=== PATIENT | female | born 1990 | race American Indian/Alaskan Native ===

== ENCOUNTER 2020-06-11 04:40 | Emergency (ER) | payer MEDICAID ==
[2020-06-11] MEDS ORDERED: methylPREDNISolone Sod Succinate 125 MG/2 ML INJ IV ONE (04:57)
[2020-06-11] MEDS ORDERED: FAMOTIDINE 20 MG/2 ML INJ IV ONE (04:57)
[2020-06-11] MEDS ORDERED: CETIRIZINE 10 MG TAB PO ONE (04:58)
--- NOTE | 2020-06-11 05:05 | Emergency Department Report ---
ED Allergic Reaction HPI - General Chief complaint: Allergic Reaction Stated complaint: ALLERGIC REACTION Time Seen by Provider: 06/11/20 04:57 Source: patient, family, EMS Mode of arrival: Stretcher Limitations: No Limitations - History of Present Illness Initial Comments: CC: "She's allergic to strawberries." HPI: This is a 30 yo female with hx of heart murmur, cognitive impairment who presens with hives and tongue swelling. Patient has had hives and facial swelling for one week. Sister is caregiver. Patient has now new clothes due to the hives and facial swelling. After drinking [place] Gatorade, patient had the sudden develoment of tongue swelling. Patient arrived via EMS. Patient received Epinephrine via ems. She is allergic to benadryl. MD Complaint: allergic reaction, hives, facial swelling, other (tongue swelling) -: week(s) (1 weeks worse tonight after drinking [place] gatorade) Exposure: unknown (unknown cause of hives, ) Severity: moderate Treatment Prior to Arrival: epinephrine - Related Data Previous Rx's Medication Instructions Recorded Last Taken Type Cetirizine HCl [ZyrTEC 10mg cap] 10 mg PO DAILY 7 Days #7 capsule 06/11/20 Unknown Rx EPINEPHrine [Epipen] 0.3 mg IJ ONCE PRN #1 auto.injct 06/11/20 Unknown Rx Famotidine [Acid Controller] 20 mg PO BID 3 Days #6 tablet 06/11/20 Unknown Rx predniSONE [Deltasone] 3 tab PO QDAY 3 Days #9 tab 06/11/20 Unknown Rx Allergies Allergy/AdvReac Type Severity Reaction Status Date / Time diphenhydramine Allergy Hives Verified 06/11/20 04:59 [From Benadryl] strawberry Allergy Hives Verified 06/11/20 04:59 ED Review of Systems ROS: Stated complaint: ALLERGIC REACTION Other details as noted in HPI Comment: Unobtainable due to pts medical conditions (unobtainable due to patient's mental capacity and current discomfort) Skin: rash, lesions ED Past Medical Hx - Past Medical History Previous Medical History?: Yes Hx GERD: Yes Additional medical history: heart murmur, cognitive disorder - Surgical History Past Surgical History?: Yes Additional Surgical History: - Social History Smoking Status: Never Smoker Substance Use Type: Alcohol - Medications Home Medications: Home Medications Medication Instructions Recorded Confirmed Last Taken Type Cetirizine HCl [ZyrTEC 10mg cap] 10 mg PO DAILY 7 Days #7 capsule 06/11/20 Unknown Rx EPINEPHrine [Epipen] 0.3 mg IJ ONCE PRN #1 auto.injct 06/11/20 Unknown Rx Famotidine [Acid Controller] 20 mg PO BID 3 Days #6 tablet 06/11/20 Unknown Rx predniSONE [Deltasone] 3 tab PO QDAY 3 Days #9 tab 06/11/20 Unknown Rx ED Physical Exam - General Limitations: No Limitations General appearance: alert, in no apparent distress, other (appears uncomfortable restless) - Head Head exam: Present: atraumatic, normocephalic - Eye Eye exam: Present: normal appearance - ENT ENT exam: Present: mucous membranes moist, other (normal tongue and lip size no soft palatal swelling) - Neck Neck exam: Present: normal inspection - Respiratory Respiratory exam: Present: normal lung sounds bilaterally. Absent: respiratory distress, wheezes, rales, rhonchi - Cardiovascular Cardiovascular Exam: Present: regular rate, normal rhythm, normal heart sounds. Absent: systolic murmur, diastolic murmur, rubs, gallop - GI/Abdominal GI/Abdominal exam: Present: soft, normal bowel sounds. Absent: distended, tenderness, guarding, rebound - Extremities Exam Extremities exam: Present: normal inspection - Neurological Exam Neurological exam: Present: alert, oriented X3 - Psychiatric Psychiatric exam: Present: normal affect, normal mood - Skin Skin exam: Present: warm, dry, intact, normal color. Absent: rash ED Course Vital Signs 06/11/20 06/11/20 06/11/20 04:51 04:53 05:15 Temperature 98.6 F Pulse Rate 107 H 103 H Respiratory 15 24 18 Rate Blood Pressure 126/74 Blood Pressure 113/94 [Right] O2 Sat by Pulse 99 99 Oximetry 06/11/20 06/11/20 05:31 05:45 Temperature Pulse Rate 99 H 95 H Respiratory 22 20 Rate Blood Pressure 135/65 135/73 Blood Pressure [Right] O2 Sat by Pulse 100 97 Oximetry - Reevaluation(s) Reevaluation #1: 06/11/20 05:51 Patient has normal voice. She is swallowing liquids. Tongue size is normal. Sister desires to find tax collection coordinator. ED Medical Decision Making - Medical Decision Making Acute allergic reaction: suspect inital allergic contact dermatitis, now anaphylaxis to [place] gatorade Treated with Famotidine, solumedrol, zyrtec Critical care attestation.: If time is entered above; I have spent that time in minutes in the direct care of this critically ill patient, excluding procedure time. ED Disposition Clinical Impression: Anaphylaxis, Allergic contact dermatitis Disposition: - TO HOME OR SELFCARE Is pt being admited?: No Does the pt Need Aspirin: No Condition: Stable Instructions: Anaphylactic Reaction, Adult Prescriptions: Famotidine [Acid Controller] 20 mg PO BID 3 Days #6 tablet predniSONE [Deltasone] 3 tab PO QDAY 3 Days #9 tab EPINEPHrine [Epipen] 0.3 mg IJ ONCE PRN #1 auto.injct PRN Reason: Allergic Reaction Cetirizine HCl [ZyrTEC 10mg cap] 10 mg PO DAILY 7 Days #7 capsule Referrals: NICHOLE SORENSEN MD [Staff Physician] - 3-5 Days
[2020-06-11 05:46] VITALS: BP 135/73
== END 2020-06-11 06:04 | disposition home or self-care (01) ==
LOC: ED 04:40
DX: T78.2XXA Anaphylactic shock, unspecified, initial encounter (principal); L23.9 Allergic contact dermatitis, unspecified cause; K21.9 Gastro-esophageal reflux disease without esophagitis; Z79.899 Other long term (current) drug therapy
CPT/HCPCS: 96374; 96375; 99283; J2930